=== PATIENT | female | born 1985 | race Caucasian/White ===

== ENCOUNTER 2017-04-16 17:00 | Emergency (ER) | payer MEDICAID ==
[~2017-04-16] VITALS: Ht 165.1 cm; Wt 63.5 kg
[2017-04-16 17:32] VITALS: BP 117/69
== END 2017-04-16 17:36 | disposition home or self-care (01) ==
LOC: ER 17:35
DX: M54.40 Lumbago with sciatica, unspecified side (principal); F10.20 Alcohol dependence, uncomplicated
CPT/HCPCS: A4663

== ENCOUNTER 2017-07-07 18:01 | Emergency (ER) | payer MEDICAID ==
[~2017-07-07] VITALS: Ht 165.1 cm; Wt 68.0 kg
--- NOTE | 2017-07-07 19:02 | NUR ---
Patient discharged to home in stable conditon. Written and verbal after care instructions given. Patient verbalizes understanding of instructions.prt walks in steady gait.
== END 2017-07-07 19:05 | disposition home or self-care (01) ==
LOC: ER 18:02
DX: S29.012A Strain of muscle and tendon of back wall of thorax, initial encounter (principal); V89.2XXA Person injured in unspecified motor-vehicle accident, traffic, initial encounter; Y93.89 Activity, other specified; Y92.413 State road as the place of occurrence of the external cause; Y99.9 Unspecified external cause status
CPT/HCPCS: A4663

== ENCOUNTER 2018-03-26 17:35 | Emergency (ER) | payer MEDICAID ==
[~2018-03-26] VITALS: Ht 165.1 cm; Wt 67.6 kg
[2018-03-26] MEDS ORDERED: ALPRAZOLAM TAB 1MG PO (18:02)
[2018-03-26] MEDS ORDERED: ESCITALOPRAM TAB 10MG PO (18:03)
[2018-03-26] MEDS ORDERED: ZOLPIDEM 10 MG PO (18:03)
[2018-03-26] MEDS ORDERED: HYDROCODONE/APAP 10-325 MG TABLET PO ONE (19:15)
[2018-03-26] MEDS ORDERED: ONDANSETRON ODT 4 MG TAB.RAPDIS SL ONE (19:15)
[2018-03-26] MEDS ORDERED: ONDANSETRON ODT 4 MG TAB.RAPDIS ONE (19:22)
--- NOTE | 2018-03-26 19:22 | NUR ---
MSE DCOMPLETED. PT D/C'D HOME, [facility] RX X2 GIVEN. PT AMBULATED W/O DIFF/TOOK ALL BELONGINGS.
[2018-03-26 19:23] VITALS: BP 122/71
[2018-03-26] MEDS ORDERED: HYDROCODONE/APAP 10-325 MG TABLET ONE (19:23)
== END 2018-03-26 19:24 | disposition home or self-care (01) ==
LOC: ER 17:36
DX: M54.30 Sciatica, unspecified side (principal); G89.29 Other chronic pain; M54.5 Low back pain; Z79.899 Other long term (current) drug therapy
CPT/HCPCS: A4663; Q0162